=== PATIENT | male | born 1970 | race Caucasian/White ===

== ENCOUNTER 2020-02-24 15:28 | Outpatient (NON) | payer OTHER, SELFPAY ==
[2020-02-25 14:22] LABS: Influenza Control Positive
== END 2020-02-24 15:29 ==
LOC: ANHCOVIDDT 15:29
PROVIDERS: PCP Family Medicine; Visit Provider Family Medicine
DX: R05 Cough (principal)
CPT/HCPCS: 87804

== ENCOUNTER 2021-01-18 15:16 | Emergency (ER) | payer OTHER, SELFPAY | END 2021-01-18 15:20 | disposition left against medical advice (07) | PROVIDERS: Emergency Provider Internal Medicine Hematology & Oncology; PCP Family Medicine | DX: Z53.21 Procedure and treatment not carried out due to patient leaving prior to being seen by health care provider (principal) | CPT/HCPCS: 99199 ==

== ENCOUNTER 2021-01-18 15:46 | Emergency (ER) | payer BC, SELFPAY ==
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
[2021-01-18 15:57] VITALS: BP 134/99; PULSE 114; RESP 16; TEMP 37.2; O2SAT 99
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
== END 2021-01-18 16:50 | disposition home or self-care (01) ==
PROVIDERS: Emergency Provider Nurse Practitioner; PCP Family Medicine
DX: S90.212A Contusion of left great toe with damage to nail, initial encounter (principal); S97.112A Crushing injury of left great toe, initial encounter; V03.10XA Pedestrian on foot injured in collision with car, pick-up truck or van in traffic accident, initial encounter; Z87.891 Personal history of nicotine dependence
CPT/HCPCS: 11740; 73630; 99213; G0463

== ENCOUNTER 2022-10-26 03:48 | Day surgery (SDC) | payer BC, SELFPAY ==
[2022-10-25 12:30] VITALS: BMI 35.5
--- NOTE | 2022-10-25 12:33 | PC.NURSE ---
Report to the Outpatient Waiting Room, entrance under the green pavilion located off [facility], at time 0600 on date 10/26/22. Planned Procedure Time: 0730. Time changes happen often and if your time is changed the preop area will call you the afternoon before. - You and your visitor will be asked to self-screen and do not enter if you have any COVID symptoms. - A mask is optional within the hospital at this time. Patients may have clear liquids (water, carbonated beverages, clear teas, apple juice) until 3 hours prior to surgery with a maximum of 20 ounces. - No food from midnight until time of surgery Take the following medications with a SIP of water the morning of surgery: N/A DO NOT STOP ANY OF YOUR OTHER PRESCRIPTION MEDICATIONS PRIOR TO SURGERY ?EXCEPT THE FOLLOWING Medications to discontinue per physician: N/A Date to take last dose: N/A Please no make-up, nail yoruba, hairspray, perfume, deodorant, or body powder the day of surgery. No jewelry (including any body piercings) or valuables the day of surgery, leave them at home. Please take a shower or bath the night before, or the morning of, surgery with an antibacterial soap. Wear comfortable, loose fitting clothing. - Jewelry must be removed prior to entering the operating room. Rings and piercings that are not removed may be cut off. - The hospital will not accept responsibility for valuables. - Please leave all valuables, including medications, at home the day of surgery. If you are going home after surgery, a licensed charter coach driver must drive you home. - NO public transportation without another adult if you receive anesthesia. - We recommend that an adult stay with you for 24 hours following discharge. - We also recommend that you do not drive, make important decision, drink alcoholic beverages, or take any drugs that were not prescribed by your health care provider for at least 24 hours after your discharge time. Follow any additional instructions given to you from your surgeon. If you or anyone in your household have experienced Covid symptoms in the past week, please notify your surgeon or the nurse liaison at the phone number below for possible testing. Telephone instructions given to PT - VASQUEZ OSUNA and asked if any additional questions and then verbalized understanding. Patient advised to call surgeon office or pre surgery nurse liaison [phone] if any additional questions.
[2022-10-26] VITALS (8 sets, daily range): BP systolic 128–149; BP diastolic 86–95; PULSE 75–94; RESP 12–18; TEMP 36.2–37.1; O2SAT 92–98
[2022-10-26] MEDS: LACTATED RINGERS 1,000 ML 30 ML IV CONT (06:50)
--- NOTE | 2022-10-26 07:07 | WPDANESEPPF ---
Anes - Initial Pre Proc Eval Procedure: Operation Date: 10/26/22 07:30 Proposed Procedures p Excision Occipital Scalp Mass - Domingo Morgan MD Date/Time: 10/26/22 07:07 Surgeon: Domingo Morgan MD Pre Op Diagnosis: Scalp Mass Occipital 2 cm Patient Data Age: 52 Gender: M Height: 1.68 m Weight: 103.8 kg Last Vital Signs Temp 98.7 F 10/26/22 06:37 Pulse 94 10/26/22 06:37 Resp 18 10/26/22 06:37 BP 149/89 H 10/26/22 06:37 Pulse Ox 98 10/26/22 06:37 O2 Del Method Room Air 10/26/22 06:37 Allergies Allergy/AdvReac Type Severity Reaction Status Date / Time aspirin Allergy Unknown Nose Bleed Verified 10/26/22 06:36 Home Medications Medication Instructions Recorded Confirmed Type No Home Medications 10/09/22 10/25/22 History Patient hx anesthesia problems: none Family hx anesthesia problems: none Results Review: All pre-operative results and documents have been reviewed as part of the pre-operative evaluation. [facility] Past Medical History Medical History (Updated 10/09/22 @ 11:44 by Cari Ramírez) Anxiety Depression Surgical History Surgical History Disorder of tendon repair 2017 Hernia age 6 Family History Family History Father Heart disease Mother Emphysema/COPD Social History Social History Smoking status: Never smoker Tobacco type: cigarettes Second hand tobacco smoke exposure: No Smoking end date: 02/25/93 Alcohol intake: current Drinks per week: 3 Alcohol use details: beer Substance use: never Substance use type: does not use Living arrangements: with family Occupation/Education: occupation Gender identity (if verbalized by the patient): Male Sexual Orientation (if Verbalized by the Patient): Straight or Heterosexual Spiritual care concerns: No Agree to blood products: Yes Anes - Eval Final PreProcedure Day of Procedure 10/26/22 07:07 Patient weight: obese Heart: regular rate and rhythm Lungs: clear to auscultation Airway: Mallampati scale class III Neurological: alert and oriented Last oral intake: >/= 8 hours ASA classification: II Emergent: no Anesthetic plan: proceed Anesthesia type and monitoring: general LMA and standard monitoring Results Review: All pre-operative results and documents have been reviewed as part of the pre-operative evaluation. Informed Consent: The patient's anesthetic plan and its attendant risks and benefits were discussed with the patient/family/POA. Questions were solicited and answers provided to the satisfaction of the patient/family/POA.
[2022-10-26] MEDS: SCOPOLAMINE 1.5 MG PATCH TRANSDERM (07:16)
--- NOTE | 2022-10-26 07:32 | WPDHPUPDATE1 ---
History and Physical Update Update Date/Time: 10/26/22 07:32 History and Physical has been reviewed, including an updated exam of the patient. There are NO changes in the patient's condition. Risks, benefits, and alternatives have been discussed and questions answered. Patient agrees to proceed with procedure.
--- NOTE | 2022-10-26 08:28 | W.PM.PROC2 ---
Procedure Note - Detailed Date of Procedure 10/26/22 Pre-op Diagnosis Scalp Mass Occipital 2 cm Post-op Diagnosis Same Procedure Performed Excision occipital scalp cyst with 3.5cm simple wound closure. Surgeon Domingo Morgan MD Caddie Supervisor Swapna Nix TUFTING MACHINE OPERATOR SINGLE NEEDLE Anesthesia General Indications Patient is a 52-year-old gentleman who presented with a slowly enlarging scalp mass in the occipital portion of his scalp. Clinically it was consistent with a benign scalp cyst. He presents now for excision. Findings Scalp cyst 1.5x1.0x1.0cm Description of Procedure After informed consent was obtained patient brought to the operating room was placed in the supine position and then general LMA anesthesia was administered. He was then turned onto the left lateral decubitus position with an axillary roll and lateral positioners. Care was taken make sure all the pressure points well padded and he was secured with a positioning strap. The area of the occipital scalp was then prepped and draped in usual sterile fashion. A time-out was then performed correctly identifying the patient as well as the procedure to be performed. He was given some Ancef for perioperative IV antibiotics. 1% lidocaine mixed with 0.5% Marcaine with some epinephrine was injected around the cyst for local anesthetic effect. I then made a small elliptical transverse incision in the skin with a scalpel and dissected down through the dermis of the skin scalpel. Then utilizing curved iris scissors I dissected around the wall the cyst without violating the wall. Once I had the cyst cyst wall completely dissected out from the surrounding subcutaneous tissues laterally I then utilized electrocautery to completely excise out the cyst with the attached ellipse of skin. The specimen was measured it was 1.5x1.0x1.0 cm. Hemostasis was then achieved in the incision utilized electrocautery. Wound was then closed in a simple fashion with a running and locking 3-0 Prolene suture in a single layer. The incision was then cleaned and then a thin layer of antibiotic ointment was applied to the incision line. The patient tolerated the procedure well no complications. All sponges, needles, and instrument counts were correct at the end procedure. EBL was 10___cc. The patient was awakened and taken to recovery in stable and satisfactory condition. Implants None Estimated Blood Loss 10 Drains No Packing No Pathology Yes (Scalp cyst to pathology) Complications No immediate complications Condition Stable Disposition PACU [facility] Billing Surgery - Charge Forward: Surgery Billing
== END 2022-10-26 09:56 | disposition home or self-care (01) ==
PROVIDERS: Visit Provider Surgery
PROC: (CPT 11422; principal; 2022-10-26 07:30)
DX: L72.12 Trichodermal cyst (principal); E66.9 Obesity, unspecified; Z68.36 Body mass index [BMI] 36.0-36.9, adult
CPT/HCPCS: 11422; 88305; A9270; J0690; J1100; J2250; J2405; J2704; J3010; J7120